=== PATIENT | female | born 1975 | race Caucasian/White ===

== ENCOUNTER 2017-02-23 22:05 | Emergency (ER) | payer OTHER ==
[2017-02-23 21:19] LABS: BASOPHILS 0.6 %; BASOPHILS ABSOLUTE 0.05 10/3/uL (0.0-0.16); EOSINOPHILS 2.7 %; EOSINOPHILS ABSOLUTE 0.23 10/3/uL (0.0-0.53); IMMATURE GRANULOCYTES 0.3 %; IMMATURE GRANULOCYTES ABSOLUTE 0.03 10/3/uL (0.0-0.11); LYMPHOCYTES 38.4 %; LYMPHOCYTES ABSOLUTE 3.31 10/3/uL (0.67-4.30); MEAN CORPUSCULAR HEMOGLOB 28.9 pg (26.0-34.0); MEAN PLATELET VOLUME 10.2 fL (9.2-13.0); MONOCYTES 8.8 %; MONOCYTES ABSOLUTE 0.76 10/3/uL (0.21-1.20); NEUTROPHILS 49.2 %; NEUTROPHILS ABSOLUTE 4.25 10/3/uL (2.02-8.40); PLATELET COUNT 188 10/3/uL (150-400); RBC DISTRIBUTION WIDTH 13.5 % (12.0-16.0)
[2017-02-23 21:20] LABS: ER CBC TAT 0 Hrs 05 Mins; HEMATOCRIT 45.9 % (36.0-48.0); MANUAL DIFF NO %; MEAN CORPUS HGB CONC 34.9 g/dL (32.0-36.0); RED CELL COUNT 5.53 10/6/uL (4.0-5.6); WHITE BLOOD CELLS 8.6 10/3/uL (4.5-10.5)
[2017-02-23 21:24] LABS: ASCORBIC ACID (UR NOT ORDER) NEG (NEG); BILIRUBIN, URINE NEGATIVE (NEG); ER URINALYSIS TAT 0 Hrs 09 Mins; KETONE, URINE NEGATIVE (NEG); LEUKOCYTE ESTERASE(NOT OR LARGE (NEG); NITRITE (URINE) NEG (NEG); WBC (NOT ORDERED) (RFLEX) 16 (0-5)
[2017-02-23 21:27] LABS: PARTIAL THROMBO TIME 25.3 SEC (22.5-37.2)
[2017-02-23 21:29] LABS: PROTIME (NOT ORD) 12.6 SEC (12.0-14.5)
[2017-02-23 21:35] LABS: CALCIUM, SERUM 9.3 MG/DL (8.5-10.4); CHLORIDE, SERUM 101 MMOL/L (96-112); CO2 (CARBON DIOXIDE) 31 MMOL/L (24-34); CREATININE 0.82 MG/DL (0.55-1.02); DIRECT BILIRUBIN 0.2 MG/DL (0.0-0.4); GFR AFRICAN AMERICAN 104 ML/MIN (>=60); GFR NON AFRICAN AMERICAN 90 ML/MIN (>=60); POTASSIUM, SERUM 3.9 MMOL/L (3.5-5.3); SGOT(AST) 91 U/L (5-40); SGPT(ALT) 80 U/L (5-65); SODIUM, SERUM 139 MMOL/L (135-148)
[2017-02-23 21:38] LABS: A/G RATIO 0.9 (0.7-1.9); ALBUMIN 3.8 G/DL (3.5-5.0); ALKALINE PHOSPHATASE 73 U/L (45-117); BUN (BLOOD UREA NITROGEN) 12 MG/DL (6-23); GLOBULIN 4.2 G/DL (2.5-4.1); GLUCOSE, SERUM 221 MG/DL (60-99); INDIRECT BILIRUBIN(NOT ORDER) 0.5 MG/DL (0.1-0.9); TOTAL BILIRUBIN 0.7 MG/DL (0-1.2)
[2017-02-23 21:41] LABS: LACTATE 2.1 MMOL/L (0.3-2.4)
[~2017-02-23 22:05] MED LIST: CAMILA0.35 MG PO; CATAFLAM50 MG PO; ENDOCET1 TAB PO; JANUMET1 TAB PO; JENTADUETO 2.51 EACH PO; KLONO1 PO; LANTUS SC; LANTUSCART SC; LEVAQUIN750 MG PO; NEUR300 PO; NEUR800 PO; NORCO1 TA2 PO; PCET PO; PERCOCET1 TA2 PO; PERCOCET1 TA4 PO; REST15 PO; T PO; ZOFRAN ODT4 MG PO; ZOFRAN4 PO; ZOFRAN8 PO; ZYRTEC ALLGY10 MG PO
[2017-02-23 22:31] LABS: PROCALCITONIN 0.15 ng/mL (<0.5)
[2017-06-19] MEDS ORDERED: PR25 PO (04:51)
[2017-06-19] MEDS ORDERED: TOUJEO SC (04:53)
[2017-06-19] MEDS ORDERED: [UNRECOGNIZED DRUG - OTHER] PO (05:03)
[2017-06-19] MEDS ORDERED: [UNRECOGNIZED DRUG - OTHER] (05:08)
[2017-06-19] MEDS ORDERED: [UNRECOGNIZED DRUG - OTHER] (05:09)
[2017-06-22] MEDS ORDERED: REG PO (13:14)
[2017-06-22] MEDS ORDERED: MIRALAX POWDER1 PKT PO (13:14)
[2017-06-22] MEDS ORDERED: PROTONIX PO (13:14)
[2017-06-22] MEDS ORDERED: NOVOPEN SC (13:16)
[2017-06-22] MEDS ORDERED: GLUCOPHAGE1000 MG PO (13:17)
== END 2017-02-23 23:16 | disposition home or self-care (01) ==
LOC: ER 22:05
PROVIDERS: Nurse Practitioner
DX: N39.0 Urinary tract infection, site not specified (principal); E11.65 Type 2 diabetes mellitus with hyperglycemia; Z88.8 Allergy status to other drugs, medicaments and biological substances; Z79.899 Other long term (current) drug therapy
CPT/HCPCS: 74176; 80053; 81001; 82248; 83605; 83690; 84145; 85025; 85610; 85730; 87040; 87086; 96374; 96376; 99284; J1170; J2550